=== PATIENT | male | born 1955 ===

== ENCOUNTER 2017-02-01 14:05 | Emergency (ER) | payer OTHER ==
[2017-02-01 14:15] VITALS: BP 148/83; PULSE 89; RESP 18; TEMP 98; O2SAT 95
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
--- NOTE | 2017-02-01 15:54 | RAD ---
PROCEDURE: Radiographs of the Chest and Right Ribs. HISTORY: injury COMPARISON: None available. TECHNIQUE: Frontal radiograph of the chest and multiple oblique radiographs of the right ribs were obtained. FINDINGS: RIGHT RIBS: No fracture or focal lesion visualized. LUNGS: Clear. PLEURA: No pneumothorax or pleural fluid. CARDIOVASCULAR: Normal sized heart. No pulmonary vascular congestion. OTHER FINDINGS: Thoracic spondylosis ; right lateral marginal osteophytes most notable IMPRESSION: No rib fracture. No pneumothorax. Thoracic spondylosis
--- NOTE | 2017-02-01 15:59 | RAD ---
PROCEDURE: Radiographs of the left elbow. HISTORY: injury COMPARISON: No prior. FINDINGS: BONES: Comminuted radial head fracture with estimated depression of 1.6 to 2.5 mm 2 mm separation of the fracture fragments. Coronoid spurring posterior olecranon minimal spurring - blending triceps insertional enthesophyte JOINTS: Osteoarthrosis SOFT TISSUES: Soft tissue swelling JOINT EFFUSION: Present OTHER FINDINGS: None IMPRESSION: Comminuted fracture radial head with depression with mild displacement of fracture fragments. No dislocation. Coronoid osteophytosis - osteoarthrosis.
== END 2017-02-01 16:47 | disposition home or self-care (01) ==
LOC: SUPCPDRO 14:05 → C.ER 14:05
DX: S52.122A Displaced fracture of head of left radius, initial encounter for closed fracture (principal); V09.3XXA Pedestrian injured in unspecified traffic accident, initial encounter; Y92.410 Unspecified street and highway as the place of occurrence of the external cause